=== PATIENT | female | born 1990 | race Caucasian/White ===

== ENCOUNTER 2022-07-10 20:47 | Inpatient (IN) | payer MEDICAID ==
[~2022-07-10] VITALS: Ht 156 cm; Wt 64.7 kg
[2022-07-10 20:00] VITALS: BP 117/71
[2022-07-10 20:30] VITALS: BP 110/65
[2022-07-10 21:00] VITALS: BP 122/64
[2022-07-10 22:00] VITALS: BP 111/54
[2022-07-10] MEDS ORDERED: BUSP15TA60 PO (22:29)
[2022-07-10] MEDS ORDERED: FAMO20TA3 PO (22:29)
[2022-07-10] MEDS ORDERED: ONDA8TAB13 PO (22:29)
[2022-07-10] MEDS ORDERED: ESCI-2 PO (22:29)
[2022-07-10] MEDS ORDERED: PREN1TAB79 PO (22:29)
[2022-07-10 22:37] LABS: BASOPHILS % (AUTO) 0 % (0-10); EOSINOPHILS # (AUTO) 0.1 10^3/uL (0.0-0.3); EOSINOPHILS % (AUTO) 2 % (0-10); HEMATOCRIT 29 % (35-52); HEMOGLOBIN 9.6 g/dL (11.5-16.0); LYMPHOCYTES # (AUTO) 1.2 10^3/uL (1.0-4.0); LYMPHOCYTES % (AUTO) 17 % (12-44); MEAN CORPUSCULAR HEMOGLOBIN 29 pg (25-34); MEAN CORPUSCULAR HGB CONC 34 g/dL (32-36); MEAN CORPUSCULAR VOLUME 85 fL (80-99); MEAN PLATELET VOLUME 12.6 fL (9.0-12.2); MONOCYTES # (AUTO) 0.6 10^3/uL (0.0-1.0); MONOCYTES % (AUTO) 8 % (0-12); NEUTROPHILS # (AUTO) 5.2 10^3/uL (1.8-7.8); NEUTROPHILS % (AUTO) 72 % (42-75); PLATELET COUNT 139 10^3/uL (130-400); WHITE BLOOD COUNT 7.1 10^3/uL (4.3-11.0)
[2022-07-10 22:59] LABS: CLARITY,URINE CLEAR; COLOR,URINE YELLOW; GLUCOSE, URINE (UA) NEGATIVE (NEGATIVE); KETONES,URINE 1+ (NEGATIVE); LEUKOCYTE ESTERASE ,URINE 1+ (NEGATIVE); NITRITE,URINE NEGATIVE (NEGATIVE); PROTEIN,URINE NEGATIVE (NEGATIVE)
[2022-07-10 23:02] LABS: BACTERIA,URINE NEGATIVE /HPF; BILIRUBIN,URINE 1+ (NEGATIVE); CALCIUM OXALATE CRYSTALS,UR FEW /LPF; SQUAMOUS EPITHELIAL CELL,UR 0-2 /HPF; WBC,URINE 0-2 /HPF
[2022-07-10 23:03] VITALS: BP 107/59
[2022-07-10 23:03] LABS: RENAL EPITHELIAL CELLS,URINE RARE /HPF
[2022-07-11] VITALS (41 sets, daily range): BP systolic 111–163; BP diastolic 50–104
[2022-07-11] MEDS: CATHETER FLUSH 10 ML SYR IV SCH ×2 (06:34→18:40)
[2022-07-11] MEDS: D5 LR IV SOLUTION 1,000 ML IV SCH ×2 (06:34→13:52)
[2022-07-11] MEDS ORDERED: fentaNYL 2 mcg/ml BUPIVA 0.125 100 ML ONE (07:25)
[2022-07-11] MEDS ORDERED: OXYTOCIN PRE-MIX DRIP 500 ML IV SCH ×2 (07:30→08:00)
[2022-07-11] MEDS ORDERED: D5 LR IV SOLUTION 1,000 ML IV SCH (08:00)
[2022-07-11] MEDS ORDERED: IBUP-1780 PO (08:09)
[2022-07-11] MEDS ORDERED: DOCU-143 PO (08:09)
--- NOTE | 2022-07-11 08:09 | Discharge Inst-Surgical ---
Discharge Inst-Surgical Depart Medication/Instructions New, Converted or Re-Newed RX: Transmitted to Pharmacy Consults/Follow Up Patient Instructions: As directed Orders & Referrals Follow Up Appt: Call to make follow up appt. for patient in 4 weeks. Activity Per routine post vaginal delivery instructions. Diet as tolerated Patient may shower or tub bathe as desired. Activity Activity as Tolerated: No Diet Discharge Diet: No Restrictions JAYCOB BEDOYA MD Jul 11, 2022 08:09
--- NOTE | 2022-07-11 08:13 | History & Physical ---
History and Physical Date Seen by Provider: Jul 11, 2022 Time Seen by Provider: 08:10 This patient is a 32-year-old 4 para 2 A1 female currently at 40+ weeks gestation. She was admitted for observation last evening with complaint of pain and pressure.Her cervix was 3 to 4 cm dilated. She has been stable through the night plan is to promote delivery with amniotomy and Pitocin if neededDue to what appears to be a protracted latent labor and postdates Patient denies rupture membranes or bleeding. Her GBS culture was negative. Allergies are to hydrocodone and oxycodone Medications are vitamins Medical social and surgical histories are per the antepartum record HEENT exam is normal Neck is supple no lymphadenopathy no thyromegaly Abdomen is gravid soft nontender nondistended Extremities show no clubbing cyanosis. There is no Homans' sign. Pelvic exam is pending Laboratory Tests Test 07/10/22 21:22 Range/Units White Blood Count 7.1 4.3-11.0 10^3/uL Red Blood Count 3.35 L 3.80-5.11 10^6/uL Hemoglobin 9.6 L 11.5-16.0 g/dL Hematocrit 29 L 35-52 % Mean Corpuscular Volume 85 80-99 fL Mean Corpuscular Hemoglobin 29 25-34 pg Mean Corpuscular Hemoglobin Concent 34 32-36 g/dL Red Cell Distribution Width 14.8 H 10.0-14.5 % Platelet Count 139 130-400 10^3/uL Mean Platelet Volume 12.6 H 9.0-12.2 fL Immature Granulocyte % (Auto) 0 % Neutrophils (%) (Auto) 72 42-75 % Lymphocytes (%) (Auto) 17 12-44 % Monocytes (%) (Auto) 8 0-12 % Eosinophils (%) (Auto) 2 0-10 % Basophils (%) (Auto) 0 0-10 % Neutrophils # (Auto) 5.2 1.8-7.8 10^3/uL Lymphocytes # (Auto) 1.2 1.0-4.0 10^3/uL Monocytes # (Auto) 0.6 0.0-1.0 10^3/uL Eosinophils # (Auto) 0.1 0.0-0.3 10^3/uL Basophils # (Auto) 0.0 0.0-0.1 10^3/uL Immature Granulocyte # (Auto) 0.0 0.0-0.1 10^3/uL Urine Color YELLOW Urine Clarity CLEAR Urine pH 6.0 5-9 Urine Specific Palmer 1.020 1.016-1.022 Urine Protein NEGATIVE NEGATIVE Urine Glucose (UA) NEGATIVE NEGATIVE Urine Ketones 1+ H NEGATIVE Urine Nitrite NEGATIVE NEGATIVE Urine Bilirubin 1+ H NEGATIVE Urine Urobilinogen 1.0 < = 1.0 MG/DL Urine Leukocyte Esterase 1+ H NEGATIVE Urine RBC (Auto) NEGATIVE NEGATIVE Urine RBC NONE /HPF Urine WBC 0-2 /HPF Urine Squamous Epithelial Cells 0-2 /HPF Urine Renal Epithelial Cells RARE /HPF Urine Crystals PRESENT H /LPF Urine Calcium Oxalate Crystals FEW H /LPF Urine Bacteria NEGATIVE /HPF Urine Casts NONE /LPF Urine Mucus MODERATE H /LPF Urine Culture Indicated NO Assessment and plan 40+ week with prolonged latent labor. Plan is for now induction with amniotomy and Pitocin if needed to promote active labor and delivery We anticipate a vaginal delivery 40-week with prolonged latent labor Allergies and Home Medications Allergies Coded Allergies: hydrocodone (Verified Allergy, Mild, Vomiting, 07/10/22) oxycodone (Verified Allergy, Mild, Vomiting, 07/10/22) Patient Home Medication List Home Medication List Reviewed: Yes Buspirone HCl (Buspirone HCl) 15 Mg Tablet, 15 MG PO BID, (Reported) Entered as Reported by: VALENTE NOEL on 07/10/222228 Last Action: New Order Docusate Sodium (Colace) 100 Mg Capsule, 100 MG PO BID Prescribed by: JAYCOB ROMAN on 07/11/22808 Escitalopram Oxalate (Escitalopram Oxalate) 10 Mg Tablet, 10 MG PO DAILY, (Reported) Entered as Reported by: VALENTE NOEL on 07/10/222228 Last Action: New Order Famotidine (Acid Civil Preparedness Training Officer (FAMOTIDINE)) 20 Mg Tablet, 20 MG PO BID PRN for HEARTBURN, (Reported) Entered as Reported by: VALENTE NOEL on 07/10/222228 Last Action: New Order Ibuprofen (Ibuprofen) 800 Mg Tablet, 800 MG PO Q6H PRN for PAIN Prescribed by: JAYCOB ROMAN on 07/11/22 0809 Ondansetron (Ondansetron Odt) 8 Mg Tab.rapdis, 8 MG PO Q6H PRN for NAUSEA/VOMITING, (Reported) Entered as Reported by: VALENTE NOEL on 07/10/222228 Last Action: New Order Vit W-Ca,Fe,FA(<1 mg) ( Vitamins) 27 Mg Iron-800 Mcg Tablet, 1 EACH PO DAILY, (Reported) Entered as Reported by: VALENTE NOEL on 07/10/222228 Last Action: New Order JAYCOB BEDOYA MD Jul 11, 2022 08:13
[2022-07-11] MEDS ORDERED: ONDANSETRON 4 MG/2 ML (SDV) Z0FRAN IV PRN (08:30)
[2022-07-11] MEDS ORDERED: METOCLOPRAMIDE INJ 10 MG/2 ML (REGLAN) IV PRN (08:30)
[2022-07-11] MEDS ORDERED: fentaNYL 2 mcg/ml BUPIVA 0.125 100 ML EPI SCH (08:30)
[2022-07-11] MEDS ORDERED: NALOXONE 0.4 MG/ML 1 ML (NARCAN) VIAL IV PRN ×2 (08:30)
[2022-07-11] MEDS ORDERED: LACTATED RINGERS 1,000 ML IV SCH (08:30)
[2022-07-11] MEDS ORDERED: diphenhydrAMINE 50 MG/ML INJ (BENADRYL) IV PRN (08:30)
[2022-07-11] MEDS ORDERED: LIDOCAINE/EPI 2% 1:200,00 (XYLOCAINE) 10 ML VIAL ONE (14:21)
[2022-07-11] MEDS ORDERED: LIDOCAINE/EPI 2% 1:200,00 (XYLOCAINE) 10 ML VIAL INJ NR (14:30)
[2022-07-11] MEDS ORDERED: METHYLERGONOVINE 0.2 MG/ML (METHERGINE) AMP ONE (15:07)
[2022-07-11] MEDS ORDERED: METHYLERGONOVINE 0.2 MG/ML (METHERGINE) AMP IM NR (16:00)
[2022-07-11] MEDS ORDERED: BENZOCAINE/MENTHOL (DERMOPLAST) 56 ML CAN TP PRN (16:00)
[2022-07-11] MEDS ORDERED: KETOROLAC 30 MG/ML VIAL IV SCH (16:00)
[2022-07-11] MEDS: IBUPROFEN 800 MG (MOTRIN) TAB PO SCH ×2 (17:00→18:39)
[2022-07-11] MEDS: OXYTOCIN PRE-MIX DRIP 500 ML IV SCH ×2 (17:01→17:31)
--- NOTE | 2022-07-11 18:38 | OPERATIVE REPORT ---
DATE OF SERVICE: 07/11/2022 DELIVERY NOTE The patient delivered by term spontaneous vaginal delivery, augmented by Pascual forceps, a viable male with Apgars of 8 and 9 at 1 and 5 minutes respectively, weight of 7 pounds 9 ounces. Cord blood pH is pending and a time of 1447. The was delivered over an intact perineum under epidural analgesia. Pascual forceps were applied at the +4 station with the heart rate less than 100 for about 8 minutes and mother unable to expel the baby. Correct placement of the forceps was confirmed and then with gentle traction through half of the contraction, the head was past . The Pascual forceps were removed and the patient pushed continuously to deliver the head over the perineum. The was bulb suctioned on delivery of the head. A nuchal cord was easily released and then the delivery completed atraumatically. The infant was bulb suctioned again. When the cord was relatively pulseless, it was doubly clamped, the father cut the cord, and the baby was passed to mother's abdomen. Cord bloods were obtained. The placenta delivered fairly promptly spontaneously Hernadez. It was normal with a 3-vessel cord. The cervix, rectum, vagina, and perineum were examined and found intact. Sponge and needle counts were correct on completion of the delivery. Blood loss was around 400 mL. The patient tolerated the delivery well and remained in the LDR for recovery. The baby remained with the mother. Job ID: [id number] DocumentID: [id number] Dictated Date: 07/11/2022 15:53:28 Er Medical Technician Date: 07/11/2022 18:38:04 Dictated By: JAYCOB BEDOYA MD
[2022-07-11] MEDS: DOCUSATE SODIUM 100 MG (COLACE) CAP PO SCH (23:15)
[2022-07-12] MEDS: IBUPROFEN 800 MG (MOTRIN) TAB PO SCH ×4 (00:38→19:01)
[2022-07-12 04:30] VITALS: BP 98/59
[2022-07-12 09:00] VITALS: BP 129/83
--- NOTE | 2022-07-12 09:37 | Progress Note ---
Standard Progress Note Progress Notes/Assess & Plan Date Seen by a Provider: Jul 12, 2022 Time Seen by a Provider: 09:36 Progress/Assessment & Plan This patient is without complaint. She is ambulating, voiding, tolerating oral intake well has good pain control. Vital Signs Date Time Temp Pulse Resp B/P (MAP) Pulse Ox O2 Delivery O2 Flow Rate FiO2 07/12/22 04:30 36.5 80 18 98/59 (72) 100 Room Air 07/11/22 21:55 37.6 75 18 120/74 (89) Room Air 07/11/22 16:55 102 81 132/60 (84) Room Air 07/11/22 16:40 68 81 130/60 (83) Room Air 07/11/22 16:15 85 81 121/50 (73) Room Air 07/11/22 16:00 78 81 131/58 (82) Room Air 07/11/22 15:45 78 18 123/61 (81) 07/11/22 15:30 99 18 119/57 (77) 07/11/22 15:15 101 18 127/65 (85) 94 Room Air 07/11/22 15:00 93 18 116/57 (76) 94 Room Air 07/11/22 14:45 125 18 163/103 (123) 94 Room Air 07/11/22 14:15 79 18 158/66 (96) 100 Room Air 07/11/22 14:00 74 18 142/89 (106) 99 Room Air 07/11/22 13:45 80 18 141/89 (106) 100 Room Air 07/11/22 13:30 53 18 141/78 (99) 99 Room Air 07/11/22 13:15 70 18 136/88 (104) 98 Room Air 07/11/22 13:00 68 18 137/71 (93) 99 Room Air 07/11/22 12:45 36.3 53 18 123/72 (89) 100 Room Air 07/11/22 12:30 69 18 99 Room Air 07/11/22 12:15 55 18 115/62 (79) 98 Room Air 07/11/22 12:00 54 18 116/71 (86) 100 Room Air 07/11/22 11:45 67 18 120/59 (79) 98 Room Air 07/11/22 11:30 54 18 123/65 (84) 100 Room Air 07/11/22 11:15 57 18 115/58 (77) 100 Room Air 07/11/22 11:00 57 18 135/80 (98) 100 Room Air 07/11/22 10:45 57 18 120/76 (91) 100 Room Air 07/11/22 10:30 60 18 118/76 (90) 100 Room Air 07/11/22 10:15 52 18 119/74 (89) 100 Room Air 07/11/22 10:00 68 18 132/70 (90) 100 Room Air 07/11/22 09:45 66 18 126/104 (111) 99 Room Air I & O 07/12/22 07:00 Intake Total 500 ml Balance 500 ml Vital signs are stable. Patient is afebrile. Fundus is firm below the umbilicus and nontender. Extremities no clubbing or cyanosis. There is no Homans' sign. Assessment and plan day #1 status post term spontaneous vaginal livery doing well. Plan is for routine convalescent care Final Diagnosis 40-week spontaneous vaginal delivery JAYCOB BEDOYA MD Jul 12, 2022 09:37
[2022-07-12] MEDS: DOCUSATE SODIUM 100 MG (COLACE) CAP PO SCH ×2 (11:58→22:50)
--- NOTE | 2022-07-12 13:23 | Anesthesia-Regional Post-Op ---
Regional Patient Condition Mental Status: Alert, Oriented x3 Circulation: Same as Pre-Op Headache: Absent Sensation: Full Recovery Motor Block: Absent Post Op Complications Complications None Follow Up Care/Instructions Patient Instructions None needed. Anesthesia/Patient Condition Patient is doing well, no complaints, stable vital signs, no apparent adverse anesthesia problems. No complications reported per nursing. WILLIAM BERNSTEIN CRNA Jul 12, 2022 13:23
[2022-07-12 19:01] VITALS: BP 115/74
[2022-07-12 22:50] VITALS: BP 120/75
[2022-07-13] MEDS: IBUPROFEN 800 MG (MOTRIN) TAB PO SCH ×3 (00:45→12:52)
[2022-07-13 04:58] VITALS: BP 108/62
--- NOTE | 2022-07-13 08:34 | Progress Note ---
Standard Progress Note Progress Notes/Assess & Plan Date Seen by a Provider: Jul 13, 2022 Time Seen by a Provider: 08:34 Progress/Assessment & Plan This patient is without complaint. She is ambulating, voiding, tolerating oral intake well has good pain control. Vital Signs Date Time Temp Pulse Resp B/P (MAP) Pulse Ox O2 Delivery O2 Flow Rate FiO2 07/12/22 04:30 36.5 80 18 98/59 (72) 100 Room Air 07/11/22 21:55 37.6 75 18 120/74 (89) Room Air 07/11/22 16:55 102 81 132/60 (84) Room Air 07/11/22 16:40 68 81 130/60 (83) Room Air 07/11/22 16:15 85 81 121/50 (73) Room Air 07/11/22 16:00 78 81 131/58 (82) Room Air 07/11/22 15:45 78 18 123/61 (81) 07/11/22 15:30 99 18 119/57 (77) 07/11/22 15:15 101 18 127/65 (85) 94 Room Air 07/11/22 15:00 93 18 116/57 (76) 94 Room Air 07/11/22 14:45 125 18 163/103 (123) 94 Room Air 07/11/22 14:15 79 18 158/66 (96) 100 Room Air 07/11/22 14:00 74 18 142/89 (106) 99 Room Air 07/11/22 13:45 80 18 141/89 (106) 100 Room Air 07/11/22 13:30 53 18 141/78 (99) 99 Room Air 07/11/22 13:15 70 18 136/88 (104) 98 Room Air 07/11/22 13:00 68 18 137/71 (93) 99 Room Air 07/11/22 12:45 36.3 53 18 123/72 (89) 100 Room Air 07/11/22 12:30 69 18 99 Room Air 07/11/22 12:15 55 18 115/62 (79) 98 Room Air 07/11/22 12:00 54 18 116/71 (86) 100 Room Air 07/11/22 11:45 67 18 120/59 (79) 98 Room Air 07/11/22 11:30 54 18 123/65 (84) 100 Room Air 07/11/22 11:15 57 18 115/58 (77) 100 Room Air 07/11/22 11:00 57 18 135/80 (98) 100 Room Air 07/11/22 10:45 57 18 120/76 (91) 100 Room Air 07/11/22 10:30 60 18 118/76 (90) 100 Room Air 07/11/22 10:15 52 18 119/74 (89) 100 Room Air 07/11/22 10:00 68 18 132/70 (90) 100 Room Air 07/11/22 09:45 66 18 126/104 (111) 99 Room Air I & O 07/12/22 07:00 Intake Total 500 ml Balance 500 ml Vital signs are stable. Patient is afebrile. Fundus is firm below the umbilicus and nontender. Extremities no clubbing or cyanosis. There is no Homans' sign. Assessment and plan day #1 status post term spontaneous vaginal livery doing well. Plan is for routine convalescent care July 13, 2022 See discharge summary JAYCOB BEDOYA MD Jul 13, 2022 08:34
--- NOTE | 2022-07-13 08:38 | Discharge Summary ---
Discharge Summary 40-week with spontaneous vaginal This patient is a 32-year-old 3 para 2 female who presented on the evening of July 10, 2022 with complaints of pain pressure in the pelvis concerning for labor. She was 40+ weeks gestation. Her GBS culture had been negative. She was admitted and observed through the night. By the morning of July 11. Patient was showing occasional contractions she was dilated to 4 5 cm. Patient appeared to have a very prolonged latent labor. Decision made to proceed with amniotomy and allow patient to proceed and deliver. She did labor adequately and delivered in the early afternoon a viable male infant. Delivery was relatively rapid but uncomplicated patient recovered uneventfully. On July 12, 2022 the patient was ambulating, voiding, tolerating oral intake well and had good pain control. She had routine care through the day. July 13, 2022 which is day #2 patient again is ambulating, voiding, tolerating oral intake and is requesting discharge home. Patient is allowed discharge home. Principal diagnosis this hospitalization is 40-week spontaneous vaginal livery Secondary diagnoses are postdates and prolonged latent labor Operation procedures include monitoring/spontaneous vaginal livery Patient was given appropriate discharge instructions verbally and in writing catheters placed in chart. Discharge medications were Percocet Motrin and Colace. JAYCOB BEDOYA MD Jul 13, 2022 08:38
[2022-07-13 09:00] VITALS: BP 110/61
[2022-07-13] MEDS: DOCUSATE SODIUM 100 MG (COLACE) CAP PO SCH (09:02)
[2022-07-13 12:55] VITALS: BP 120/77
[2022-07-13 14:00] VITALS: BP 120/77
== END 2022-07-13 14:00 | disposition home or self-care (01) | DRG 807 ==
LOC: WSo 20:47 → LDRP 22:40 → OBSVTOIN 07-11 07:20 → LDRP 07-11 17:48
PROVIDERS: ADMIT Obstetrics & Gynecology; ATTEND Obstetrics & Gynecology
PROC: 10E0XZZ Delivery of Products of Conception, External Approach (ICD-10-PCS; principal; 2022-07-09)
DX: O48.0 Post-term pregnancy (principal); Z37.0 Single live birth; O62.0 Primary inadequate contractions; O69.81X0 Labor and delivery complicated by cord around neck, without compression, not applicable or unspecified; Z3A.40 40 weeks gestation of pregnancy
CPT/HCPCS: 36415; 81000; 85025; 86780; 86850; 86900; 86901; 99212

== ENCOUNTER → 2022-11-04 | Outpatient (CLI) | payer MEDICAID ==
[~2022-11-04] VITALS: Ht 154.9 cm; Wt 50.0 kg
[~2022-11-04] MED LIST: BUSP15TA60 PO; DOCU-143 PO; ESCI-2 PO; FAMO20TA3 PO; IBUP-1780 PO; ONDA8TAB13 PO; PREN1TAB79 PO
== END | disposition home or self-care (01) ==
LOC: PREOP 05:37
PROVIDERS: ATTEND Obstetrics & Gynecology
DX: Z01.818 Encounter for other preprocedural examination (principal)

== ENCOUNTER 2022-11-11 10:57 | Day surgery (SDC) | payer MEDICAID ==
[~2022-11-11] VITALS: Ht 154.9 cm; Wt 50.0 kg
[2022-11-11] VITALS (10 sets, daily range): BP systolic 79–117; BP diastolic 47–86
--- NOTE | 2022-11-11 08:32 | Progress Note-Pre Operative ---
Pre-Operative Progress Note Date of Available H&P: Nov 11, 2022 Date H&P Reviewed: Nov 11, 2022 Time H&P Reviewed: 12:44 History & Physical: H&P Reviewed, No changes noted Pre-Operative Diagnosis: LUDIN-2 JAYCOB BEDOYA MD Nov 11, 2022 08:32
--- NOTE | 2022-11-11 08:33 | Progress Note-Post Operative ---
Post-Operative Progess Note Surgeon (s)/Surgical Appliances Salesperson (s) Surgeon JAYCOB BEDOYA MD Surgical Appliances Salesperson: None Pre-Operative Diagnosis LUDIN-2 Post-Operative Diagnosis Same with pathology pending Procedure & Operative Findings Date of Procedure 11/11/22 Procedure Performed/Findings LEEP procedure Anesthesia Type General Estimated Blood Loss Estimated blood loss (mL): min Specimens/Packing Specimens Removed LEEP specimen ectocervix JAYCOB BEDOYA MD Nov 11, 2022 08:33
--- NOTE | 2022-11-11 08:35 | Discharge Inst-Surgical ---
Discharge Inst-Surgical Depart Medication/Instructions New, Converted or Re-Newed RX: Transmitted to Pharmacy Consults/Follow Up Orders & Referrals Follow Up Appt: Call to make follow up appt. for patient in 1 weeks. Activity: Rest for 24 hours, than as tolerated. Diet: As tolerated shower or tub bathe as desired. No driving for 24 hours, no alcoholic beverages for 24 hours, and nothing per vagina (no tampons, douching, or intercourse) for 4 weeks. Patient to return to the clinic as soon as possible for: Temperature greater than 101F, Severe Pain, Foul discharge from incision or vagina, Excessive Bleeding (more than a period). Activity Activity as Tolerated: No Diet Discharge Diet: No Restrictions JAYCOB BEDOYA MD Nov 11, 2022 08:35
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
[~2022-11-11 10:57] MED LIST changes: +D5 LR IV SOLUTION 1,000 ML IV SCH; +KETOROLAC 30 MG/ML VIAL IVP ONE; +MEPERIDINE (DEMEROL) INJ 100 MG/ML IM ONE; +ONDANSETRON 4 MG/2 ML (SDV) Z0FRAN IVP PRN; +PROMETHAZINE INJ 25 MG/ML (PHENERGAN) AMP IM ONE
[2022-11-11] MEDS ORDERED: ceFAZolin INJECTION 1,000 MG in NS (IVPB) 50 ML IV ONE (11:30)
[2022-11-11] MEDS ORDERED: LACTATED RINGERS 1,000 ML IV PRN (11:30)
[2022-11-11 11:43] LABS: BASOPHILS % (AUTO) 1 % (0-10); EOSINOPHILS # (AUTO) 0.2 10^3/uL (0.0-0.3); EOSINOPHILS % (AUTO) 4 % (0-10); HEMATOCRIT 37 % (35-52); HEMOGLOBIN 12.1 g/dL (11.5-16.0); LYMPHOCYTES # (AUTO) 1.6 10^3/uL (1.0-4.0); LYMPHOCYTES % (AUTO) 32 % (12-44); MEAN CORPUSCULAR HEMOGLOBIN 29 pg (25-34); MEAN CORPUSCULAR HGB CONC 33 g/dL (32-36); MEAN CORPUSCULAR VOLUME 86 fL (80-99); MEAN PLATELET VOLUME 10.5 fL (9.0-12.2); MONOCYTES # (AUTO) 0.3 10^3/uL (0.0-1.0); MONOCYTES % (AUTO) 7 % (0-12); NEUTROPHILS # (AUTO) 2.7 10^3/uL (1.8-7.8); NEUTROPHILS % (AUTO) 57 % (42-75); PLATELET COUNT 205 10^3/uL (130-400); WHITE BLOOD COUNT 4.9 10^3/uL (4.3-11.0)
[2022-11-11] MEDS ORDERED: MIDAZOLAM 2 MG/2 ML (VERSED) VIAL ONE (12:11)
[2022-11-11] MEDS ORDERED: fentaNYL INJ 100 MCG/2 ML AMP ONE (12:11)
[2022-11-11] MEDS ORDERED: proPOfol 200 MG/20 ML (DIPRIVAN) VIAL IV ONE (12:11)
[2022-11-11] MEDS ORDERED: ONDANSETRON 4 MG/2 ML (SDV) Z0FRAN ONE (12:11)
[2022-11-11] MEDS ORDERED: LIDOCAINE PF 2% 5 ML (XYLOCAINE) VIAL ONE (12:11)
[2022-11-11] MEDS ORDERED: KETOROLAC 30 MG/ML VIAL ONE (12:49)
[2022-11-11] MEDS ORDERED: SEVOFLURANE (ULTANE) 15 ML INHAL SOLN ONE (13:15)
[2022-11-11] MEDS ORDERED: morphine INJ 10 MG/ML 1ML (SYR OR VIAL) IVP ONE (13:15)
[2022-11-11] MEDS ORDERED: fentaNYL INJ 100 MCG/2 ML AMP IVP ONE (13:15)
[2022-11-11] MEDS ORDERED: ONDANSETRON 4 MG/2 ML (SDV) Z0FRAN IVP PRN (13:15)
--- NOTE | 2022-11-11 22:23 | OPERATIVE REPORT ---
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 PROCEDURE: LEEP procedure. OPERATIVE DESCRIPTION: With the patient in supine position, under satisfactory general anesthesia, she [facility] and prepped and draped in the usual fashion for vaginal surgery. Urinary bladder was drained with a straight catheter. A weighted speculum was placed in the posterior fornix of vagina, cervix exposed and grasped anteriorly with a single tooth tenaculum. The uterus was saturated with 5% acetic acid solution. After several minutes, the solution was evacuated from the vagina. There was acetowhite band around the opening of the external cervical os. LEEP procedure was performed in a single pass with a 20 mm loop electrode. The specimen was sent to pathology for permanent section, labeled as ectocervix. The LEEP defect was now treated with ball to affect hemostasis. Hemostasis was complete. Sponge and needle counts were correct. Blood loss was minimal. The patient tolerated the procedure well and was uneventfully awakened from her general anesthesia and transferred to recovery room in stable condition with plans for discharge home [facility]. Job ID: [id number] DocumentID: [id number] Dictated Date: 11/11/2022 13:06:56 Freezer Unloader Date: 11/11/2022 22:22:00 Dictated By: JAYCOB BEDOYA MD
== END 2022-11-11 15:05 ==
LOC: SDC 10:57
PROVIDERS: ATTEND Obstetrics & Gynecology
DX: D06.9 Carcinoma in situ of cervix, unspecified (principal); F17.210 Nicotine dependence, cigarettes, uncomplicated; N95.2 Postmenopausal atrophic vaginitis
CPT/HCPCS: 36415; 84703; 85025; 87081